=== PATIENT | male | born 1990 | race Two or more races ===

== ENCOUNTER 2025-06-25 15:49 | Inpatient (IN) | payer OTHER ==
[~2025-06-25] VITALS: Ht 183.5 cm; Wt 86.7 kg
--- NOTE | 2025-06-25 16:35 | ED.PDOC ---
GI ASSESSMENT HPI Comments This is a 35 year old male presenting to the ED with chief complaint of difficulty swallowing. Patient reports that he has been experiencing difficulty in swallowing along with associated nausea/vomiting for the past 3-4 days. Patient relays that he is unable to swallow any food or drink, but is able to handle his own saliva. Patient states that he had visited [facility] earlier today where he was found to have an enlarged lymph node in his neck and he had been dehydrated. Patient notes history of excess mucous in his throat after having nasal surgery performed a few months ago. Patient reports that he chokes even on the smallest amount of water, causing him to vomit. Patient denies any abdominal pain, chest pain, SOB, fever, or chills. Chief Complaint: Nausea/Vomiting Time Seen by MD: 16:31 Reviewed Notes: Nurses Notes, Medications, Allergies Allergies: Coded Allergies: NO KNOWN ALLERGIES (Unverified , 06/25/25) Information Source: Patient Mode of Arrival: Ambulatory Timing: Days Duration: Since onset Prehospital treatment: None Quality: None Vomitus: Watery Severity: Moderate Recent: None Recent Hx of: None Past Medical History PAST MEDICAL HISTORY: Anxiety Surgical History: Denies all surgeries Family History Family History: Reviewed,noncontributory to illness Social History Smoker: Non-Smoker Alcohol: Denies ETOH Use Drugs: Denies Drug Use Lives In: Home Constitutional: denies: chills, diaphoresis, fatigue, fever, malaise, sweats, weakness, others EENTM: denies: blurred vision, double vision, ear bleeding, ear discharge, ear drainage, ear pain, ear ringing, eye pain, eye redness, hearing loss, mouth pain, mouth swelling, nasal discharge, nose bleeding, nose congestion, nose pain, photophobia, tearing, throat pain, throat swelling, voice changes, others Respiratory: denies: cough, hemoptysis, orthopnea, SOB at rest, shortness of breath, SOB with excertion, stridor, wheezing, others Cardiovascular: denies: chest pain, dizzy spells, diaphoresis, Dyspnea on exertion, edema, irregular heart beat, left arm pain, lightheadedness, palpitations, PND, syncope, others Gastrointestinal: reports: difficulty swallowing, nausea, vomiting; denies: abdomen distended, abdominal pain, blood streaked bowels, constipated, diarrhea, dysphagia, hematemesis, melena, poor appetite, poor fluid intake, rectal bl eeding, rectal pain, others Genitourinary: denies: burning, dysuria, flank pain, frequency, hematuria, inc ontinence, penile discharge, penile sore, pain, testicle pain, testicle swelling, urgency, others Neurological: denies: dizziness, fainting, headache, left sided numbness, left sided weakness, numbness, paresthesia, pre-existing deficit, right sided numbness, right sided weakness, seizure, speech problems, tingling, tremors, weakness, others Musculoskeletal: denies: back pain, gout, joint pain, joint swelling, muscle pain, muscle stiffness, neck pain, others Integumetry: denies: bruises, change in color, change in hair/nails, dryness, laceration, lesions, lumps, rash, wounds, others Allergic/Immunocompromised: denies: Difficulty Healing, Frequent Infections, Hives, Itching, others Hematologic/Lymphatic: denies: anemia, blood clots, easy bleeding, easy bruising, swollen glands, others Endocrine: denies: excessive hunger, excessive sweating, excessive thirst, excessive urination, flushing, intolerance to cold, intolerance to heat, unexplained weight gain, unexplained weight loss, others Psychiatric: denies: anxiety, bipolar disorder, depression, hopeless, panic disorder, schizophrenia, sleepless, suicidal, others All Other Systems: Reviewed and Negative Physical Exam General Appearance: No Apparent Distress, Normal HEENT: Normal ENT Inspection, Pharynx Normal, TMs Normal Neck: Full Range of Motion, Non-Tender, Normal, Normal Inspection Respiratory: Chest Non-Tender, Lungs Clear, No Accessory Muscle Use, No Respiratory Distress, Normal Breath Sounds Cardiovascular: No Edema, No JVD, No Murmur, No Gallop, Normal Peripheral Pulses, Regular Rate/Rhythm Breast Exam: Deferred Gastrointestinal: No Organomegaly, Non Tender, No Pulsatile Mass, Normal Bowel Sounds, Soft Genitalia: Deferred Pelvic: Deferred Rectal: Deferred Extremities: No calf tenderness, Normal capillary refill, Normal inspection, Normal range of motion, Non-tender, No pedal edema Musculoskeletal : Apperance: Normal Neurologic: Alert, health researcher II-XII nml as Tested, No Motor Deficits, Normal Affect, Normal Mood, No Sensory Deficits Cerebellar Function: Normal Reflexes: Normal Skin: Dry, Normal Color, Warm Lymphatic: No Adenopathy Was a procedure done? Was a procedure done?: No GI differential Dx Differential Diagnosis: Esophagitis, Gastritis/PUD, Gastroenteritis, Hernia, Dehydration, Electrolyte Imbalance, Food Poisoning, Viral, Malnutrition X-Ray, Labs, Meds, VS Vital Signs Date Time Temp Pulse Resp B/P (MAP) Pulse Ox O2 Delivery O2 Flow Rate FiO2 06/25/25 19:50 98.2 83 18 112/67 (82) 96 98.2 06/25/25 19:12 98.2 87 16 101/68 (79) 100 98.2 06/25/25 17:29 95 18 95 Room Air 06/25/25 17:01 97.5 95 18 120/72 (88) 95 97.5 06/25/25 15:55 98.2 90 15 119/78 95 98.2 Lab Test 06/25/25 16:39 Range/Units White Blood Count 9.6 4.4-10.8 10^3/uL Red Blood Count 5.72 4.5-5.90 10^6/uL Hemoglobin 16.6 13.5-17.5 g/dL Hematocrit 47.6 41.0-53.0 % Mean Corpuscular Volume 83.2 80.0-100.0 fL Mean Corpuscular Hemoglobin 29.0 28.0-32.0 pg Mean Corpuscular Hemoglobin Concent 34.8 32.0-36.0 g/dL Red Cell Distribution Width 13.8 11.8-14.3 % Platelet Count 255 140-450 10^3/uL Mean Platelet Volume 9.5 6.9-10.8 fL Neutrophils (%) (Auto) 92.1 H 37.0-80.0 % Lymphocytes (%) (Auto) 7.4 L 10.0-50.0 % Monocytes (%) (Auto) 0.4 0.0-12.0 % Eosinophils (%) (Auto) 0.0 0.0-7.0 % Basophils (%) (Auto) 0.1 0.0-2.0 % Neutrophils # (Auto) 8.8 H 1.6-8.6 10 ^3/uL Lymphocytes # (Auto) 0.7 0.4-5.4 10 ^3/uL Monocytes # (Auto) 0 0-1.3 10 ^3/uL Eosinophils # (Auto) 0 0-0.8 10 ^3/uL Basophils # (Auto) 0 0-0.2 10 ^3/uL Nucleated Red Blood Cells 0.3 % Sodium Level 140 136-145 mmol/L Potassium Level 3.9 3.5-5.1 mmol/L Chloride Level 103 98-107 mmol/L Carbon Dioxide Level 25 20-31 mmol/L Anion Gap 12 5-15 Blood Urea Nitrogen 25 H 9-23 mg/dL Creatinine 0.99 0.700-1.30 mg/dL Glomerular Filtration Rate Calc 102 >90 mL/min BUN/Creatinine Ratio 25.3 H 10.0-20.0 Serum Glucose 175 H 74-106 mg/dL Hemoglobin A1c 5.5 <5.7 % A1C Calcium Level 9.9 8.7-10.4 mg/dL Lipase 28 12-53 U/L Current Medications Medications (Trade) Dose Ordered Sig/Venkat Route Start Time Stop Time Status Last Admin Al Hydrox/Mg Hydrox/Simethicone (Maalox Plus) 15 ml ONCE ONCE PO 06/25/25 16:30 06/25/25 16:32 DC 06/25/25 17:18 Lidocaine HCl (Xylocaine 2% Viscous) 10 ml ONCE ONCE MT 06/25/25 16:30 06/25/25 16:32 DC 06/25/25 17:15 X-Ray, Labs, Meds, VS Comment Patient presenting with dysphagia to solids and liquids for the past few days, however unable to patient's. Lab work (CBC, BMP) to evaluate for evidence of severe anemia, electrolyte abnormality including hypokalemia, hyperkalemia, hypernatremia, hyponatremia, hyperglycemia, hypoglycemia, etc. GI cocktail IV fluids Re-evaluate Social determinant surveillance affecting care: Social determinants of health that will affect the patient's care: Poor health literacy (additional time provided an explanation) Poor access to outpatient care/followup (provided outpatient resources) Time of 1ST Reevaluation: 17:31 Reevaluation 1ST: Unchanged Patient Education/Counseling: Diagnosis, Treatment Family Education/Counseling: Diagnosis, Treatment SEPSIS Sepsis Screen Date sepsis recognized/suspect: Jun 25, 2025 Time Sepsis recognized/suspect: 1556 Recent Procedure: No On Antibiotic Therapy: No Respiratory Rate >20: No Heart Rate >90: No Temp<36 C (96.8 F) or >38.3 C: No SBP <90 or MAP <65 mmHG: No New Acute Mental Status Change: No Is the patient on CPAP, BIPAP,: No Physician Orders Allergies (06/25/25 19:42) Code Status (06/25/25 19:42) Sodium Chloride Lock (Saline Lock Ns) (06/25/25 22:00) Oxygen Per Hour (06/25/25 19:42) Ondansetron Hcl (Zofran) (06/25/25 19:45) Docusate Sodium Capsule (Colace Capsule) (06/25/25 19:45) Complete Blood Count (06/26/25 04:00) Comprehensive Metabolic Panel (06/26/25 04:00) Condition: Serious (06/25/25 19:42) Acetaminophen Tablet (Tylenol Tablet) (06/25/25 19:45) Clear Liq Diet (06/26/25 Breakfast) Bedrest With Bathroom Privileg (06/25/25 19:42) Sequential Compression Device (06/25/25 ) Abdomen Limited (06/25/25 19:45) Vital Signs Date Time Temp Pulse Resp B/P (MAP) Pulse Ox O2 Delivery O2 Flow Rate FiO2 06/25/25 19:50 98.2 83 18 112/67 (82) 96 98.2 06/25/25 19:12 98.2 87 16 101/68 (79) 100 98.2 06/25/25 17:29 95 18 95 Room Air 06/25/25 17:01 97.5 95 18 120/72 (88) 95 97.5 06/25/25 15:55 98.2 90 15 119/78 95 98.2 Laboratory Tests Test 06/25/25 16:39 White Blood Count 9.6 10^3/uL (4.4-10.8) Medications Medications Dose Ordered Sig/Venkat Route Start Time Stop Time Status Last Admin Dose Admin Al Hydrox/Mg Hydrox/Simethicone 15 ml ONCE ONCE PO 06/25/25 16:30 06/25/25 16:32 DC 06/25/25 17:18 Lidocaine HCl 10 ml ONCE ONCE MT 06/25/25 16:30 06/25/25 16:32 DC 06/25/25 17:15 Departure 1 Departure Time of Disposition: 20:54 (On reassessment, patient is still unable to tolerate p.o.. Labs unremarkable. Will admit for further evaluation of dysphagia.) Impression: Primary Impression: Dysphagia Additional Impression: Lymphadenopathy Disposition: ADMITTED INPATIENT Admit to: Med Surg Condition: Guarded Critical Care Note Critical Care Time?: No Stability Stability form required: No Heart Score Heart Score: Heart Score Response (Comments) Value History N/A 0 EKG N/A 0 Age N/A 0 Risk Factors N/A 0 Troponin N/A 0 Total 0 I personally scribed for FORREST THMOASON MD ([email or web address]) on 06/25/25 at 16:35. Electronically submitted by Jeovany Shah ([email or web address]). FORREST THOMASON MD Jun 25, 2025 16:35
[2025-06-25 16:49] LABS: Hematocrit 47.6 % (41.0-53.0); Hemoglobin 16.6 g/dL (13.5-17.5); Mean Corpuscular Hemoglobin 29.0 pg (28.0-32.0); Mean Corpuscular Volume 83.2 fL (80.0-100.0); Nucleated Red Blood Cells % 0.3 %
[2025-06-25 17:07] LABS: Chloride 103 mmol/L (98-107); Potassium 3.9 mmol/L (3.5-5.1); Sodium 140 mmol/L (136-145)
[2025-06-25 17:08] LABS: Anion Gap 12 (5-15); Calcium 9.9 mg/dL (8.7-10.4); Carbon Dioxide 25 mmol/L (20-31)
[2025-06-25 17:13] LABS: BUN/Creatinine Ratio 25.3 (10.0-20.0); Blood Urea Nitrogen 25 mg/dL (9-23); Glucose 175 mg/dL (74-106); Lipase 28 U/L (12-53)
[2025-06-25] MEDS: LIDOCAINE VISCOUS 2% 15ML UD MT ONE (17:15)
[2025-06-25] MEDS: MAALOX PLUS or MAALOX 30 ML PO ONE (17:18)
[2025-06-25] MEDS ORDERED: DOCUSATE SOD 100 MG CAP PO PRN (19:45)
[2025-06-25] MEDS ORDERED: ACETAMINOPHEN 325 MG TAB PO PRN (19:45)
[2025-06-25] MEDS ORDERED: ONDANSETRON HCL 4 MG/2 ML VIAL IV PRN (19:45)
--- NOTE | 2025-06-25 20:21 | DVH ---
ULTRASOUND ABDOMEN, LIMITED RIGHT UPPER QUADRANT: REASON FOR EXAM: Nausea and vomiting TECHNIQUE: Real-time sector scans in the transverse and longitudinal planes were obtained through the right upper quadrant of the abdomen. FINDINGS: The liver is of normal size and contour. The liver is Profoundly echogenic. There is hepatopetal flow in the portal vein. There is no intrahepatic biliary ductal dilatation. The common bile duct measures 3 mm. No gallstones or sludge are identified. There is no gallbladder wall thickening nor pericholecystic fluid. There is no sonographic Wheeler's sign. The pancreas is obscured by bowel gas. The right kidney measures 10.3 cm. No hydronephrosis or nephrolithiasis is identified. There is no evidence of right renal mass or cyst. The visualized portions of the abdominal aorta demonstrate no evidence of aneurysmal dilatation. The visualized inferior vena cava is unremarkable. There is no free fluid identified in the right upper quadrant. IMPRESSION: No gallstone is identified. No sonographic wheeler's sign. Profoundly echogenic liver parenchyma. This may be secondary to steatosis or another diffuse hepatic process. Correlate clinically and with liver function tests.
[2025-06-25] MEDS ORDERED: MORPHINE SULFATE INJ 2 MG/ml SYRG IV PRN (21:30)
[2025-06-25] MEDS ORDERED: NITROGLYCERIN 0.4 MG SL TAB SL PRN (21:30)
--- NOTE | 2025-06-25 21:32 | DVHHP2 ---
History of Present Illness Reason for Visit: Dysphagia History of Present Illness The patient is a 35-year-old male with past medical history of anxiety who presented to [facility] [place] with complaint of difficulty swallowing. Patient reports that he has been experiencing difficulty swallowing any food or drinks associated with nausea and vomiting for the past 3-4 days. Patient states that he had visited [facility] earlier today where he was found to have an enlarged lymph node in his neck and dehydrated. Patient was seen and evaluated in the ED, laboratory data shows WBC 9.6, platelets 255, sodium 140, potassium 3.9, BUN 20, creatinine 0.99, GFR 102, glucose 178, hemoglobin A1c 5.5, calcium 9.9, lipase 28, blood pressure 101/68, heart rate 86, temperature 98.2 F, O2 saturation 99% on room air. Abdominal ultrasound showed no gallstone, no sonographic Wheeler's sign. Please see medication orders section in the computer. On my assessment, patient denied chest pain, no headache, dizziness, diaphoresis, shortness of breaths, no abdominal pain, nausea or vomiting at this moment, no diarrhea, fever, no chills. Patient was admitted for further evaluation and medical management. Past Medical History Anxiety Past Surgical History Denies all surgeries Family History Reviewed, noncontributory to the management of this case. Past Social History The patient lives at home, denies smoking, alcohol or illicit drugs abuse. Review of Systems Constitutional: No: Fever, Chills, Sweats, Weakness, Malaise, Other Eyes: No: Pain, Vision change, Conjunctivae inflammation, Eyelid inflammation, Other, Redness ENT: No: Ear pain, Ear discharge, Nose pain, Nose discharge, Nose congestion, Mouth pain, Mouth swelling, Throat pain, Throat swelling, Other Respiratory: No: Cough, Dry, Shortness of breath, SOB with excertion, Wheezing, Hemoptysis, Pleuritic Pain, Sputum, Wheezing, Other Cardiovascular: No: Chest Pain, Palpitations, Orthopnea, Paroxysmal Noc. Dyspnea, Edema, Lt Headedness, Other Gastrointestinal: Nausea, Vomiting, Other (Difficulty swallowing); No: Abdominal Pain, Diarrhea, Constipation, Melena, Hematochezia Genitourinary: No Dysuria, No Frequency, No Incontinence, No Hematuria, No Retention, No Other Musculoskeletal: No: other, neck pain, shoulder pain, arm pain, back pain, hand pain, leg pain, foot pain Skin: No: Rash, Lesions, Jaundice, Bruising, Other Neurological: No: Weakness, Numbness, Incoordination, Change in speech, Confusion, Seizures, Other Allergies: Coded Allergies: NO KNOWN ALLERGIES (Unverified , 06/25/25) Medications Current Medications Medications Dose Ordered Sig/Venkat Route Start Time Stop Time Status Last Admin Dose Admin Sodium Chloride 10 ml Q8HR IV 06/25/25 22:00 Ondansetron HCl 4 mg Q4HP PRN IV 06/25/25 19:45 Docusate Sodium 100 mg BIDPRN PRN PO 06/25/25 19:45 Acetaminophen 650 mg Q6HP PRN PO 06/25/25 19:45 Exam Vital Signs Vital Signs Date Time Temp Pulse Resp B/P (MAP) Pulse Ox O2 Delivery O2 Flow Rate FiO2 06/25/25 19:50 98.2 83 18 112/67 (82) 96 98.2 06/25/25 17:29 Room Air General Appearance: Alert, Oriented X3, Cooperative, No acute distress HEENT: Atraumatic, PERRLA, EOMI, Mucous membr. moist/pink Respiratory: Clear to auscultation, Normal air movement Cardiovascular: Regular rate, Normal S1, Normal S2, No murmurs Abdominal: Normal bowel sounds, Soft, No tenderness, No hepatospenomegaly, No masses Extremities: No clubbing, No cyanosis, No edema, Normal pulses, No tenderness/swelling Skin: No rashes, No breakdown, No significant lesion Neuro: Normal gait, Normal speech, Strength at 5/5 X4 ext, Normal tone, Sensation intact, Cranial nerves 3-12 NL, Reflexes 2+ Psych/Mental Status: Mental status NL, Mood NL Labs/Xrays Labs Test 06/25/25 16:39 Range/Units White Blood Count 9.6 4.4-10.8 10^3/uL Red Blood Count 5.72 4.5-5.90 10^6/uL Hemoglobin 16.6 13.5-17.5 g/dL Hematocrit 47.6 41.0-53.0 % Mean Corpuscular Volume 83.2 80.0-100.0 fL Mean Corpuscular Hemoglobin 29.0 28.0-32.0 pg Mean Corpuscular Hemoglobin Concent 34.8 32.0-36.0 g/dL Red Cell Distribution Width 13.8 11.8-14.3 % Platelet Count 255 140-450 10^3/uL Mean Platelet Volume 9.5 6.9-10.8 fL Neutrophils (%) (Auto) 92.1 H 37.0-80.0 % Lymphocytes (%) (Auto) 7.4 L 10.0-50.0 % Monocytes (%) (Auto) 0.4 0.0-12.0 % Eosinophils (%) (Auto) 0.0 0.0-7.0 % Basophils (%) (Auto) 0.1 0.0-2.0 % Neutrophils # (Auto) 8.8 H 1.6-8.6 10 ^3/uL Lymphocytes # (Auto) 0.7 0.4-5.4 10 ^3/uL Monocytes # (Auto) 0 0-1.3 10 ^3/uL Eosinophils # (Auto) 0 0-0.8 10 ^3/uL Basophils # (Auto) 0 0-0.2 10 ^3/uL Nucleated Red Blood Cells 0.3 % Sodium Level 140 136-145 mmol/L Potassium Level 3.9 3.5-5.1 mmol/L Chloride Level 103 98-107 mmol/L Carbon Dioxide Level 25 20-31 mmol/L Anion Gap 12 5-15 Blood Urea Nitrogen 25 H 9-23 mg/dL Creatinine 0.99 0.700-1.30 mg/dL Glomerular Filtration Rate Calc 102 >90 mL/min BUN/Creatinine Ratio 25.3 H 10.0-20.0 Serum Glucose 175 H 74-106 mg/dL Hemoglobin A1c 5.5 <5.7 % A1C Calcium Level 9.9 8.7-10.4 mg/dL Lipase 28 12-53 U/L PATIENT: EZEQUIEL BARRERAEQUIELACCT: [id number] UNIT: [id number] : 1990 LOC: ER ROOM / BED: / AGE / SEX: 35 / M ADM STATUS: REG ER SERVICE 44 ORDERING PHYSICIAN: PARRIS SY DNP PROCEDURE(s): ABDL - ABDOMEN LIMITED REASON: Nausea and vomiting ORDER NUMBER(s): [id number], ACCESSION NUMBER(s): [id number] ULTRASOUND ABDOMEN, LIMITED RIGHT UPPER QUADRANT: REASON FOR EXAM: Nausea and vomiting TECHNIQUE: Real-time sector scans in the transverse and longitudinal planes were obtained through the right upper quadrant of the abdomen. FINDINGS: The liver is of normal size and contour. The liver is Profoundly echogenic. There is hepatopetal flow in the portal vein. There is no intrahepatic biliary ductal dilatation. The common bile duct measures 3 mm. No gallstones or sludge are identified. There is no gallbladder wall thickening nor pericholecystic fluid. There is no sonographic Wheeler's sign. The pancreas is obscured by bowel gas. The right kidney measures 10.3 cm. No hydronephrosis or nephrolithiasis is identified. There is no evidence of right renal mass or cyst. The visualized portions of the abdominal aorta demonstrate no evidence of aneurysmal dilatation. The visualized inferior vena cava is unremarkable. There is no free fluid identified in the right upper quadrant. IMPRESSION: No gallstone is identified. No sonographic wheeler's sign. Profoundly echogenic liver parenchyma. This may be secondary to steatosis or another diffuse hepatic process. Correlate clinically and with liver function tests. SEPSIS Sepsis Screen Date sepsis recognized/suspect: Jun 25, 2025 Time Sepsis recognized/suspect: 1556 Recent Procedure: No On Antibiotic Therapy: No Respiratory Rate >20: No Heart Rate >90: No Temp<36 C (96.8 F) or >38.3 C: No SBP <90 or MAP <65 mmHG: No New Acute Mental Status Change: No Is the patient on CPAP, BIPAP,: No Physician Orders Allergies (06/25/25 19:42) Code Status (06/25/25 19:42) Sodium Chloride Lock (Saline Lock Ns) (06/25/25 22:00) Oxygen Per Hour (06/25/25 19:42) Ondansetron Hcl (Zofran) (06/25/25 19:45) Docusate Sodium Capsule (Colace Capsule) (06/25/25 19:45) Complete Blood Count (06/26/25 04:00) Comprehensive Metabolic Panel (06/26/25 04:00) Condition: Serious (06/25/25 19:42) Acetaminophen Tablet (Tylenol Tablet) (06/25/25 19:45) Clear Liq Diet (06/26/25 Breakfast) Bedrest With Bathroom Privileg (06/25/25 19:42) Sequential Compression Device (06/25/25 ) Abdomen Limited (06/25/25 19:45) Vital Signs Date Time Temp Pulse Resp B/P (MAP) Pulse Ox O2 Delivery O2 Flow Rate FiO2 06/25/25 19:50 98.2 83 18 112/67 (82) 96 98.2 06/25/25 19:12 98.2 87 16 101/68 (79) 100 98.2 06/25/25 17:29 95 18 95 Room Air 06/25/25 17:01 97.5 95 18 120/72 (88) 95 97.5 06/25/25 15:55 98.2 90 15 119/78 95 98.2 Laboratory Tests Test 06/25/25 16:39 White Blood Count 9.6 10^3/uL (4.4-10.8) Medications Medications Dose Ordered Sig/Venkat Route Start Time Stop Time Status Last Admin Dose Admin Al Hydrox/Mg Hydrox/Simethicone 15 ml ONCE ONCE PO 06/25/25 16:30 06/25/25 16:32 DC 06/25/25 17:18 15 ML Lidocaine HCl 10 ml ONCE ONCE MT 06/25/25 16:30 06/25/25 16:32 DC 06/25/25 17:15 10 ML Assessment/Plan Assessment/Plan Dysphagia Lymphadenopathy Hyperglycemia Plan 1. Admit to med surge unit 2. Breathing treatment 3. Pain control management 4. Management of fluids and electrolytes 5. Consultation for hospitalist 6. Diagnostic tests abdominal ultrasound 7. DVT prophylaxis on SCDs 8. Repeat labs CBC, CMP in a.m. 9. Continue with current medical management 10. Treatment plan discussed with patient and RN. Patient verbalized understanding. Plan discussed with: Patient, Other (RN) My Orders Orders - PARRIS SY DNP Procedure Category Date Status Time Allergies BRANDON 06/25/25 In Process 19:42 Code Status CODE 06/25/25 Transmitted 19:42 Sodium Chloride Lock PHA 06/25/25 In Process (Saline Lock Ns) 22:00 Oxygen Per Hour RT 06/25/25 Transmitted 19:42 Ondansetron Hcl PHA 06/25/25 In Process (Zofran) 19:45 Docusate Sodium PHA 06/25/25 In Process Capsule (Colace 19:45 Complete Blood Count LAB 06/26/25 Verified 04:00 Comprehensive LAB 06/26/25 Verified Metabolic Panel 04:00 Condition: Serious BRANDON 06/25/25 In Process 19:42 Acetaminophen Tablet PHA 06/25/25 In Process (Tylenol Tablet) 19:45 Clear Liq Diet DIET 06/26/25 Transmitted Breakfast Bedrest With Bathroom BRANDON 06/25/25 In Process Privileg 19:42 Sequential BRANDON 06/25/25 In Process Compression Device Abdomen Limited US 06/25/25 Resulted 19:45 Problem List: (1) Dysphagia (2) Lymphadenopathy (3) Hyperglycemia Date of Service: Jun 25, 2025 Billing Provider: PARRIS SY DNP Common Visit Codes: 71890-[id number] INP/OBS CARE (HIGH) PARRIS SY DNP Jun 25, 2025 21:31
[2025-06-25] MEDS: SODIUM CHLOR 0.9% PF (SALINE LOCK) 10ML VIAL/SYR IV SCH (22:38)
[2025-06-26] VITALS (7 sets, daily range): BP systolic 95–108; BP diastolic 58–68; PULSE 57–66; RESP 16–18; TEMP 96.9–98.7; O2SAT 97–100
[2025-06-26 06:57] LABS: Hematocrit 46.2 % (41.0-53.0); Hemoglobin 16.0 g/dL (13.5-17.5); Mean Corpuscular Hemoglobin 29.2 pg (28.0-32.0); Mean Corpuscular Volume 84.1 fL (80.0-100.0); Nucleated Red Blood Cells % 0.1 %
[2025-06-26 07:03] LABS: Alanine Aminotransferase 32 U/L (7-40); Anion Gap 10 (5-15); BUN/Creatinine Ratio 20.4 (10.0-20.0); Blood Urea Nitrogen 20 mg/dL (9-23); Calcium 9.9 mg/dL (8.7-10.4); Carbon Dioxide 24 mmol/L (20-31); Chloride 105 mmol/L (98-107); Glucose 100 mg/dL (74-106); Potassium 4.2 mmol/L (3.5-5.1); Sodium 139 mmol/L (136-145); Total Protein 8.1 g/dL (5.7-8.2)
[2025-06-26 07:04] LABS: Albumin 4.7 g/dL (3.2-4.8); Bilirubin, Total 0.7 mg/dL (0.2-1.0)
[2025-06-26 07:33] LABS: Alkaline Phosphatase 92 U/L (46-116)
--- NOTE | 2025-06-26 13:29 | DVHPN2 ---
Eyes: No Pain, No Vision change, No Conjunctivae inflammation, No Eyelid inflammation, No Other, No Redness ENT: No Ear pain, No Ear discharge, No Nose pain, No Nose discharge, No Nose congestion, No Mouth pain, No Mouth swelling, No Throat pain, No Throat swelling, No Other Cardiovascular: No Chest Pain, No Palpitations, No Orthopnea, No Paroxysmal Noc. Dyspnea, No Edema, No Lt Headedness, No Other Respiratory: No Cough, No Dry, No Shortness of breath, No SOB with excertion, No Wheezing, No Hemoptysis, No Pleuritic Pain, No Sputum, No Other Gastrointestinal: Nausea, Vomiting; No Abdominal Pain, No Diarrhea, No Constipation, No Melena, No Hematochezia; Other (Difficulty swallowing) Genitourinary: No Dysuria, No Frequency, No Incontinence, No Hematuria, No Retention, No Other Musculoskeletal: No other, No neck pain, No shoulder pain, No arm pain, No back pain, No hand pain, No leg pain, No foot pain Skin: No Rash, No Lesions, No Jaundice, No Bruising, No Other Objective Vitals Vital Signs Date Time Temp Pulse Resp B/P (MAP) Pulse Ox O2 Delivery O2 Flow Rate FiO2 06/26/25 13:02 98.0 58 16 105/68 (80) 100 98.0 06/26/25 07:40 Room Air* 0 21 Intake/Output Intake and Output 06/26/25 07:00 Intake Total 10 ml Output Total 0 ml Balance 10 ml Intake Other 10 ml Output Urine Total 0 ml Medications Current Medications Medications Dose Ordered Sig/Venkat Route Start Time Stop Time Status Last Admin Dose Admin Sodium Chloride 10 ml Q8HR IV 06/25/25 22:00 06/26/25 12:54 10 ML Ondansetron HCl 4 mg Q4HP PRN IV 06/25/25 19:45 Docusate Sodium 100 mg BIDPRN PRN PO 06/25/25 19:45 Acetaminophen 650 mg Q6HP PRN PO 06/25/25 19:45 Nitroglycerin 0.4 mg Q5MINP PRN SL 06/25/25 21:30 Morphine Sulfate 2 mg Q30M PRN IV 06/25/25 21:30 Laboratory Results Laboratory Tests 06/26/25 06:37 Chemistry Test 06/25/25 16:39 06/26/25 06:37 Calcium Level 9.9 mg/dL (8.7-10.4) 9.9 mg/dL (8.7-10.4) Albumin 4.7 g/dL (3.2-4.8) Total Protein 8.1 g/dL (5.7-8.2) Lipid panel Test 06/25/25 16:39 Lipase 28 U/L (12-53) LFT Test 06/26/25 06:37 Alanine Aminotransferase (ALT) 32 U/L (7-40) Alkaline Phosphatase 92 U/L (46-116) Aspartate Amino Transferase (AST) 22 U/L (13-40) Total Bilirubin 0.7 mg/dL (0.2-1.0) HgA1c, TSH Test 06/25/25 16:39 Hemoglobin A1c 5.5 % A1C (<5.7) Assessment/Plan My Orders Orders - BRIAN GREEN MD Procedure Category Date Status Time * Gi [employer] Alkylation CONS 06/26/25 Transmitted 13:27 BRIAN GREEN MD Jun 26, 2025 13:29
--- NOTE | 2025-06-26 15:24 | DVH ---
Procedure: CT NECK WITHOUT CONTRAST Reason for study/Clinical History: NECK SWELLING Comparison Study: None Exam Date: 06/26/2025 02:45 PM Radiation Dose Information: CT Dose: CTDI volume is 23.2 mGy. Dose-length product is 708.05 mGy*cm [Statement][Radimetrics Dose Report] Technique: CT of the neck was performed without intravenous contrast with multiplanar images reviewed. Findings: Aerodigestive Tract: Limited evaluation on noncontrast study. No masslike density in the aerodigestive tract. Lymph Nodes: Asymmetrically enlarged left-sided cervical lymph nodes including 9 mm left level 2 cervical lymph node. Salivary Glands: Normal. Thyroid Gland: Unremarkable. Visualized Brain and Orbits: No acute process. Paranasal sinus and mastoid air cells: Scattered paranasal sinus mucosal thickening. Mastoid air cells are clear. Osseous Structures and Soft Tissues: No aggressive osseous lesions. Vascular: Patency not evaluated on this noncontrast study. Lung Apices: Clear. IMPRESSION: Asymmetrically enlarged left-sided cervical lymph nodes including 9 mm left level 2 cervical lymph node. While these are favored to be reactive, recommend short-term follow-up CT or ultrasound to ensure resolution to exclude neoplastic process.
--- NOTE | 2025-06-26 19:45 | DVHINCON2 ---
Date of service: Jun 26, 2025 Referring Physician romain Reason for Consultation Dysphagia History of Present Illness 35 year old male with dysphagia and anxiety --found to have LN on imaging - patient already slated for discharge==patient denies food impaction, prior hx of EGD or hematemesis--he denies other recent imaging-states that he has high anxiety-was told to follow up with doctor Past Medical History denies Past Surgical History denies Family History: Diabetes mellitus G8 MOTHER, Onset:Unknown G8 FATHER, Onset:Unknown Social History no T/E/D abuse Allergies: Coded Allergies: NO KNOWN ALLERGIES (Unverified , 06/25/25) Current Medications Current Medications Medications (Trade) Dose Ordered Sig/Venkat Route PRN Reason Start Time Stop Time Status Last Admin Sodium Chloride (Saline Lock Ns) 10 ml Q8HR IV 06/25/25 22:00 06/26/25 19:02 DC 06/26/25 12:54 Ondansetron HCl (Zofran) 4 mg Q4HP PRN IV NAUSEA / VOMITING 06/25/25 19:45 06/26/25 19:02 DC Docusate Sodium (Colace Capsule) 100 mg BIDPRN PRN PO FOR CONSTIPATION 06/25/25 19:45 06/26/25 19:02 DC Acetaminophen (Tylenol Tablet) 650 mg Q6HP PRN PO PAIN SCALE 1-3 OR TEMP>100.4 06/25/25 19:45 06/26/25 19:02 DC Nitroglycerin (Ntrostat Sublingual) 0.4 mg Q5MINP PRN SL FOR CHEST PAIN 06/25/25 21:30 06/26/25 19:02 DC Morphine Sulfate 2 mg Q30M PRN IV FOR CHEST PAIN 06/25/25 21:30 06/26/25 19:03 DC Review of Systems ROS negative Vital Signs Vital Signs Date Time Temp Pulse Resp B/P (MAP) Pulse Ox O2 Delivery O2 Flow Rate FiO2 06/26/25 17:00 96.9 59 16 108/68 (81) 100 96.9 06/26/25 15:19 Room Air* 0 21 Physical Exam a/ox4 ncat eomi perrla op clear --mild LA in neck left side rrr s nt nd nabs no c c e Labs/Diagnostic Data Labs Test 06/26/25 06:37 06/25/25 16:39 Range/Units White Blood Count 9.0 4.4-10.8 10^3/uL Red Blood Count 5.49 4.5-5.90 10^6/uL Hemoglobin 16.0 13.5-17.5 g/dL Hematocrit 46.2 41.0-53.0 % Mean Corpuscular Volume 84.1 80.0-100.0 fL Mean Corpuscular Hemoglobin 29.2 28.0-32.0 pg Mean Corpuscular Hemoglobin Concent 34.7 32.0-36.0 g/dL Red Cell Distribution Width 13.8 11.8-14.3 % Platelet Count 222 140-450 10^3/uL Mean Platelet Volume 9.2 6.9-10.8 fL Neutrophils (%) (Auto) 74.1 37.0-80.0 % Lymphocytes (%) (Auto) 21.0 10.0-50.0 % Monocytes (%) (Auto) 4.7 0.0-12.0 % Eosinophils (%) (Auto) 0.0 0.0-7.0 % Basophils (%) (Auto) 0.2 0.0-2.0 % Neutrophils # (Auto) 6.7 1.6-8.6 10 ^3/uL Lymphocytes # (Auto) 1.9 0.4-5.4 10 ^3/uL Monocytes # (Auto) 0.4 0-1.3 10 ^3/uL Eosinophils # (Auto) 0 0-0.8 10 ^3/uL Basophils # (Auto) 0 0-0.2 10 ^3/uL Nucleated Red Blood Cells 0.1 % Sodium Level 139 136-145 mmol/L Potassium Level 4.2 3.5-5.1 mmol/L Chloride Level 105 98-107 mmol/L Carbon Dioxide Level 24 20-31 mmol/L Anion Gap 10 5-15 Blood Urea Nitrogen 20 9-23 mg/dL Creatinine 0.98 0.700-1.30 mg/dL Glomerular Filtration Rate Calc 103 >90 mL/min BUN/Creatinine Ratio 20.4 H 10.0-20.0 Serum Glucose 100 74-106 mg/dL Calcium Level 9.9 8.7-10.4 mg/dL Total Bilirubin 0.7 0.2-1.0 mg/dL Aspartate Amino Transferase (AST) 22 13-40 U/L Alanine Aminotransferase (ALT) 32 7-40 U/L Alkaline Phosphatase 92 46-116 U/L Total Protein 8.1 5.7-8.2 g/dL Albumin 4.7 3.2-4.8 g/dL Hemoglobin A1c 5.5 <5.7 % A1C Lipase 28 12-53 U/L Assessment neck pain dysphagia LN in necks Problems(with codes): (1) Dysphagia (2) Lymphadenopathy Plan/Recommendation d/c home outpatient follow up with PCP and GI Plan discussed with: Patient VALENTINA WEBSTER MD Jun 26, 2025 19:45
--- NOTE | 2025-06-26 20:02 | DVHDS2 ---
Discharge Summary Date of Admission Jun 25, 2025 at 21:29 Date of Discharge: Jun 26, 2025 Admitting Diagnosis Dysphagia Lymphadenopathy Hyperglycemia Labs/Diagnostic Data: Laboratory Results Test 06/26/25 06:37 06/25/25 16:39 White Blood Count 9.0 10^3/uL (4.4-10.8) Red Blood Count 5.49 10^6/uL (4.5-5.90) Hemoglobin 16.0 g/dL (13.5-17.5) Hematocrit 46.2 % (41.0-53.0) Mean Corpuscular Volume 84.1 fL (80.0-100.0) Mean Corpuscular Hemoglobin 29.2 pg (28.0-32.0) Mean Corpuscular Hemoglobin Concent 34.7 g/dL (32.0-36.0) Red Cell Distribution Width 13.8 % (11.8-14.3) Platelet Count 222 10^3/uL (140-450) Mean Platelet Volume 9.2 fL (6.9-10.8) Neutrophils (%) (Auto) 74.1 % (37.0-80.0) Lymphocytes (%) (Auto) 21.0 % (10.0-50.0) Monocytes (%) (Auto) 4.7 % (0.0-12.0) Eosinophils (%) (Auto) 0.0 % (0.0-7.0) Basophils (%) (Auto) 0.2 % (0.0-2.0) Neutrophils # (Auto) 6.7 10 ^3/uL (1.6-8.6) Lymphocytes # (Auto) 1.9 10 ^3/uL (0.4-5.4) Monocytes # (Auto) 0.4 10 ^3/uL (0-1.3) Eosinophils # (Auto) 0 10 ^3/uL (0-0.8) Basophils # (Auto) 0 10 ^3/uL (0-0.2) Nucleated Red Blood Cells 0.1 % Sodium Level 139 mmol/L (136-145) Potassium Level 4.2 mmol/L (3.5-5.1) Chloride Level 105 mmol/L (98-107) Carbon Dioxide Level 24 mmol/L (20-31) Anion Gap 10 (5-15) Blood Urea Nitrogen 20 mg/dL (9-23) Creatinine 0.98 mg/dL (0.700-1.30) Glomerular Filtration Rate Calc 103 mL/min (>90) BUN/Creatinine Ratio 20.4 (10.0-20.0) Serum Glucose 100 mg/dL (74-106) Calcium Level 9.9 mg/dL (8.7-10.4) Total Bilirubin 0.7 mg/dL (0.2-1.0) Aspartate Amino Transferase (AST) 22 U/L (13-40) Alanine Aminotransferase (ALT) 32 U/L (7-40) Alkaline Phosphatase 92 U/L (46-116) Total Protein 8.1 g/dL (5.7-8.2) Albumin 4.7 g/dL (3.2-4.8) Hemoglobin A1c 5.5 % A1C (<5.7) Lipase 28 U/L (12-53) Other Laboratory Tests 06/26/25 06:37 Brief Hx & Hospital Course: This is 35 years old male with past medical history anxiety come to emergency department because difficulty swallowing. The patient had disc experience difficult swallowing of any kind of food and drink including hot, cold, solid or liquid. He said his difficulty swallowing associated with nausea and vomiting for couple day. Patient had visits more stool emergency department earlier and was found to have a nonenlarged lymph node in his neck and dehydrated. The patient had a blood glucose of 178. The patient was admitted. GI was consulted. Recommend outpatient follow up. The patient also had a large lymphadenopathy on his neck and CT was order to further management of his lymphadenopathy. His hemoglobin A1c is 5.5. His abdominal ultrasound showed no gallstone, no Wheeler sign. The patient grew inpatient and said he can [place] and decided to leave against medical advice. The patient verbally understand without the further workup for his lymphadenopathy we will not know what caused his swelling lymph node. Is may be lymphoma. The patient still wanted to leave against medical advice Physical exam: HEENT: Normocephalic atraumatic pupils equal react to light and accommodation. Extraocular muscles intact, conjunctiva pink, oropharynx moist, no thrush, no exudate. Lymphatic: Lymphadenopathy on the left jaw and neck Cardiovascular exam: S1, S2 was heard. No murmurs, rubs, gallops Lung: Clear on auscultation bilaterally, no wheeze, rale, rhonchi. GI: Abdominal soft, nondistended, nontenderness, positive bowel sounds. Extremity: No crepitus, cyanosis, edema. Pedal pulses present bilateral. Full range of motion. Skin: Normal turgor, no rash. Psych: Alert, oriented x3. Neurology: No focal deficits, cranial nerve II to XII grossly intact. This medical document was created using an electronic medical record system with [employer] direct computerized dictation system. Although this document has been carefully reviewed, there may still be some phonetic and typographical errors. These areas are purely typographical due to imperfections of the software programs, and do not reflect any compromise in the patient's medical care. Condition at Discharge: Guarded Final Diagnosis/Problems List Dysphagia Lymphadenopathy Hyperglycemia Discharge Disposition: AMA Discharge Statement: "Patient was advised to return to the ER or call 911 if any headaches, dizziness, shortness of breath, chest pain, abdominal pain, bleeding, fevers, or worsening of medical condition. Patient was counseled about treatment plan, medications, possible side effects, patientverbalized understanding. All questions were answered to the best of my ability. This discharge took greater then 30 minutes in planning, reviewing documentation, counseling the patient, and discussing with other team members." ASSESSMENT ASSESSMENT Assessment Date of Service: Jun 26, 2025 Billing Provider: BRIAN GREEN MD Common Visit Codes: 39326-EVQ/OBS DISCH DAY >30min BRIAN GREEN MD Jun 26, 2025 20:02
== END 2025-06-26 18:55 | disposition left against medical advice (07) | DRG 392 ==
LOC: ER 15:49 → OVERFLOW 21:29 → WEST WING 06-26 15:18
PROVIDERS: ADMIT Nurse Practitioner Family; ATTEND Nurse Practitioner Family
DX: R13.10 Dysphagia, unspecified (principal); E86.0 Dehydration; R59.1 Generalized enlarged lymph nodes; F41.9 Anxiety disorder, unspecified; M54.2 Cervicalgia; R73.9 Hyperglycemia, unspecified; Z53.29 Procedure and treatment not carried out because of patient's decision for other reasons; Z83.3 Family history of diabetes mellitus; Z79.899 Other long term (current) drug therapy
CPT/HCPCS: 36415; 70490; 76705; 80048; 80053; 83036; 83690; 85025; G0378